=== PATIENT | female | born 1975 | race Caucasian/White ===

== ENCOUNTER → 2020-08-02 | Outpatient (CLI) | payer OTHER ==
--- NOTE | 2020-08-06 10:19 | MM ---
Reason for exam: screening (asymptomatic). Last mammogram was performed 1 year and 9 months ago. History: Took hormonal contraceptives for 15 years. Physical Findings: A clinical breast exam by your physician is recommended on an annual basis and results should be correlated with mammographic findings. MG 3D Screening Mammo W/Cad Bilateral CC and MLO view(s) were taken. Prior study comparison: November 15, 2018, mammogram, performed at [facility]. The breast tissue is heterogeneously dense. This may lower the sensitivity of mammography. Benign appearing calcifications in the left breast. No significant changes when compared with prior studies. ASSESSMENT: Benign, BI-RAD 2 RECOMMENDATION: Routine screening mammogram of both breasts in 1 year.
== END | disposition home or self-care (01) ==
LOC: RADMAMWWP 09:52
PROVIDERS: ATTEND Family Medicine
DX: Z12.31 Encounter for screening mammogram for malignant neoplasm of breast (principal)
CPT/HCPCS: 77063; 77067

== ENCOUNTER 2022-09-02 08:19 | Inpatient (IN) | payer OTHER ==
[2022-09-02] MEDS ORDERED: SODIUM CHLORIDE 0.9% 1,000 ML IV STA (09:32)
[2022-09-02] MEDS ORDERED: ONDANSETRON 4 MG/2 ML VIAL IVP STA ×2 (09:32→13:14)
[2022-09-02] MEDS ORDERED: HYDROmorphone 0.5 MG/0.5 ML SYRINGE IVP STA ×2 (09:33→13:14)
--- NOTE | 2022-09-02 09:34 | ED ---
General Adult HPI - General Chief complaint: Abdominal Pain Stated complaint: Abd pain Time Seen by Provider: 09/02/22 09:26 Source: patient, RN notes reviewed, old records reviewed Mode of arrival: ambulatory Limitations: no limitations - History of Present Illness Initial comments: 47-year-old female presenting for evaluation of abdominal pain and vomiting. Patient states she's had intermittent abdominal pain in the epigastrium for the past several days but this morning the pain significantly worsened and she had 5 episodes of vomiting. No lower abdominal pain. No fever. No prior abdominal surgical history. - Related Data Home Medications Medication Instructions Recorded Confirmed Atorvastatin [Lipitor] 10 mg PO DAILY 09/02/22 09/02/22 Daysee 1 tab PO DAILY 09/02/22 09/02/22 FLUoxetine HCL [PROzac] 20 mg PO DAILY 09/02/22 09/02/22 Famotidine [Pepcid] 20 mg PO DAILY 09/02/22 09/02/22 Allergies Allergy/AdvReac Type Severity Reaction Status Date / Time No Known Allergies Allergy Verified 09/02/22 11:07 Review of Systems ROS Statement: Those systems with pertinent positive or pertinent negative responses have been documented in the HPI. ROS Other: All systems not noted in ROS Statement are negative. Past Medical History Past Medical History: Hyperlipidemia History of Any Multi-Drug Resistant Organisms: None Reported Past Surgical History: No Surgical Hx Reported Past Psychological History: No Psychological Hx Reported Smoking Status: Never smoker Past Alcohol Use History: Occasional Past Drug Use History: Marijuana General Exam Limitations: no limitations General appearance: alert, in no apparent distress Head exam: Present: atraumatic, normocephalic Eye exam: Present: normal appearance, PERRL ENT exam: Present: normal exam Neck exam: Present: normal inspection. Absent: tenderness, meningismus Respiratory exam: Present: normal lung sounds bilaterally. Absent: respiratory distress, wheezes Cardiovascular Exam: Present: regular rate, normal rhythm GI/Abdominal exam: Present: soft, tenderness (Epigastrium and right upper quadrant). Absent: distended Extremities exam: Present: normal inspection, normal capillary refill. Absent: pedal edema Neurological exam: Present: alert, oriented X3, CN II-XII intact. Absent: motor sensory deficit Psychiatric exam: Present: normal affect, normal mood Skin exam: Present: warm, dry, intact Course Vital Signs 09/02/22 08:29 Temperature 98.2 F Pulse Rate 76 Respiratory 22 Rate Blood Pressure 147/94 O2 Sat by Pulse 99 Oximetry Medical Decision Making - Medical Decision Making Was pt. sent in by a medical professional or institution (SUKHJINDER Escalante, COMMUNICATIONS MANAGER, urgent care, hospital, or intermediate...) When possible be specific @ -[No] Did you speak to anyone other than the patient for history (EMS, parent, family, police, friend...)? What history was obtained from this source @ -[No] Did you review nursing and triage notes (agree or disagree)? Why? @ -[I reviewed and agree with nursing and triage notes] Were old charts reviewed (outside hosp., previous admission, EMS record, old EKG, old radiological studies, urgent care reports/EKG's, intermediate records)? Report findings @ -[No old charts were reviewed] Differential Diagnosis (chest pain, altered mental status, abdominal pain women, abdominal pain men, vaginal bleeding, weakness, fever, dyspnea, syncope, headache, dizziness, GI bleed, back pain, seizure, CVA, palpatations, mental health, musculoskeletal)? @ -Differential Abdominal Pain Women: Appendicitis, Cholecystitis, diverticulosis, ischemic bowel, pancreatitis, hepatitis, UTI, gastroenteritis, AAA, incarcerated hernia, bowel obstruction, constipation, inflammatory bowel, hepatitis, peptic ulcer disease, splenic infarction, perforated viscus, vulvitis, ovarian torsion, PID, kidney stone, placenta abruption, this is not meant to be an all-inclusive list EKG interpreted by me (3pts min.). @ -[As above] X-rays interpreted by me (1pt min.). @ -KUB: Mildly dilated small bowel without true peritoneal free air CT interpreted by me (1pt min.). @ -[None done] U/S interpreted by me (1pt. min.). @ -[Negative for acute cholecystitis What testing was considered but not performed or refused? (CT, X-rays, U/S, labs)? Why? @ -[None] What meds were considered but not given or refused? Why? @ -[None] Did you discuss the management of the patient with other professionals (professionals i.e. SUKHJINDER Escalante, COMMUNICATIONS MANAGER, lab, RT, psych nurse, social services designee, milk of lime slaker, teacher, enforcement officer, immigration case worker)? Give summary @ -[Dr. Hooks Was smoking cessation discussed for >3mins.? @ -[No] Was critical care preformed (if so, how long)? @ -[No] Were there social determinants of health that impacted care today? How? (Homelessness, low income, unemployed, alcoholism, drug addiction, transportation, low edu. Level, literacy, decrease access to med. care, alf, rehab)? @ -[No] Was there de-escalation of care discussed even if they declined (Discuss DNR or withdrawal of care, Hospice)? DNR status @ -[No] What co-morbidities impacted this encounter? (DM, HTN, Smoking, COPD, CAD, Cancer, CVA, ARF, Chemo, Hep., AIDS, mental health diagnosis, sleep apnea, morbid obesity)? @ -Hyperlipidemia Was patient admitted / discharged? Hospital course, mention meds given and route, prescriptions, significant lab abnormalities, going to OR and other pertinent info. @ 39-year-old female with epigastric abdominal pain and vomiting patient has tenderness in the epigastrium and right upper quadrant. Laboratory testing is unremarkable cleaning CBC, CMP, troponin, lipase. Patient receives ultrasound of the gallbladder which is negative for acute cholecystitis, x-ray which shows mildly distended small bowel. CT shows concern for small bowel obstruction. Patient admitted to general surgery. Undiagnosed new problem with uncertain prognosis? @ -[No] Drug Therapy requiring intensive monitoring for toxicity (Heparin, Nitro, Insulin, Cardizem)? @ -[No] Were any procedures done? @ -[No] Diagnosis/symptom? @ SBO Acute, or Chronic, or Acute on Chronic? @ Acute Uncomplicated (without systemic symptoms) or Complicated (systemic symptoms)? @ -Complicated Side effects of treatment? @ -[No] Exacerbation, Progression, or Severe Exacerbation? @ -[No] Poses a threat to life or bodily function? How? (Chest pain, [place], [place], pneumonia, PE, COPD, DKA, ARF, appy, cholecystitis, CVA, Diverticulitis, Homicidal, Suicidal, threat to staff... and all critical care pts) @ -Moderate risk - Lab Data Result diagrams: 09/02/22 09:20 09/02/22 09:34 Lab Results 09/02/22 09/02/22 09/02/22 Range/Units 09:20 09:20 09:34 WBC 12.7 H (3.8-10.6) k/uL RBC 5.33 (3.80-5.40) m/uL Hgb 15.9 (11.4-16.0) gm/dL Hct 48.4 H (34.0-46.0) % MCV 90.8 (80.0-100.0) fL MCH 29.8 (25.0-35.0) pg MCHC 32.8 (31.0-37.0) g/dL RDW 13.5 (11.5-15.5) % Plt Count 265 (150-450) k/uL MPV 8.0 Neutrophils % 85 % Lymphocytes % 10 % Monocytes % 3 % Eosinophils % 1 % Basophils % 0 % Neutrophils # 10.9 H (1.3-7.7) k/uL Lymphocytes # 1.3 (1.0-4.8) k/uL Monocytes # 0.4 (0-1.0) k/uL Eosinophils # 0.1 (0-0.7) k/uL Basophils # 0.0 (0-0.2) k/uL PT 9.7 (9.0-12.0) sec INR 0.9 (<1.2) APTT 22.5 (22.0-30.0) sec Sodium (137-145) mmol/L Potassium (3.5-5.1) mmol/L Chloride (98-107) mmol/L Carbon Dioxide (22-30) mmol/L Anion Gap mmol/L BUN (7-17) mg/dL Creatinine (0.52-1.04) mg/dL Est GFR (CKD-EPI)AfAm (>60 ml/min/1.73 sqM) Est GFR (CKD-EPI)NonAf (>60 ml/min/1.73 sqM) Glucose (74-99) mg/dL Plasma Lactic Acid [place] (0.7-2.0) mmol/L Calcium (8.4-10.2) mg/dL Total Bilirubin (0.2-1.3) mg/dL AST (14-36) U/L ALT (4-34) U/L Alkaline Phosphatase (38-126) U/L Troponin I <0.012 (0.000-0.034) ng/mL Total Protein (6.3-8.2) g/dL Albumin (3.5-5.0) g/dL Amylase (30-110) U/L Lipase (23-300) U/L Urine Color Urine Appearance (Clear) Urine pH (5.0-8.0) Ur Specific [place] (1.001-1.035) Urine Protein (Negative) Urine Glucose (UA) (Negative) Urine Ketones (Negative) Urine Blood (Negative) Urine Nitrite (Negative) Urine Bilirubin (Negative) Urine Urobilinogen (<2.0) mg/dL Ur Leukocyte Esterase (Negative) Urine WBC (0-5) /hpf Ur Squamous Epith Cells (0-4) /hpf Amorphous Sediment (None) /hpf Urine Mucus (None) /hpf 09/02/22 09/02/22 09/02/22 Range/Units 09:34 09:34 11:25 WBC (3.8-10.6) k/uL RBC (3.80-5.40) m/uL Hgb (11.4-16.0) gm/dL Hct (34.0-46.0) % MCV (80.0-100.0) fL MCH (25.0-35.0) pg MCHC (31.0-37.0) g/dL RDW (11.5-15.5) % Plt Count (150-450) k/uL MPV Neutrophils % % Lymphocytes % % Monocytes % % Eosinophils % % Basophils % % Neutrophils # (1.3-7.7) k/uL Lymphocytes # (1.0-4.8) k/uL Monocytes # (0-1.0) k/uL Eosinophils # (0-0.7) k/uL Basophils # (0-0.2) k/uL PT (9.0-12.0) sec INR (<1.2) APTT (22.0-30.0) sec Sodium 138 (137-145) mmol/L Potassium 4.3 (3.5-5.1) mmol/L Chloride 103 (98-107) mmol/L Carbon Dioxide 25 (22-30) mmol/L Anion Gap 10 mmol/L BUN 17 (7-17) mg/dL Creatinine 0.61 (0.52-1.04) mg/dL Est GFR (CKD-EPI)AfAm >90 (>60 ml/min/1.73 sqM) Est GFR (CKD-EPI)NonAf >90 (>60 ml/min/1.73 sqM) Glucose 132 H (74-99) mg/dL Plasma Lactic Acid Frederick 1.7 (0.7-2.0) mmol/L Calcium 9.6 (8.4-10.2) mg/dL Total Bilirubin 1.1 (0.2-1.3) mg/dL AST 26 (14-36) U/L ALT 22 (4-34) U/L Alkaline Phosphatase 74 (38-126) U/L Troponin I (0.000-0.034) ng/mL Total Protein 7.2 (6.3-8.2) g/dL Albumin 4.3 (3.5-5.0) g/dL Amylase 81 (30-110) U/L Lipase 156 (23-300) U/L Urine Color Yellow Urine Appearance Cloudy H (Clear) Urine pH 5.5 (5.0-8.0) Ur Specific [place] 1.024 (1.001-1.035) Urine Protein Trace H (Negative) Urine Glucose (UA) Negative (Negative) Urine Ketones 2+ H (Negative) Urine Blood Negative (Negative) Urine Nitrite Negative (Negative) Urine Bilirubin Negative (Negative) Urine Urobilinogen <2.0 (<2.0) mg/dL Ur Leukocyte Esterase Negative (Negative) Urine WBC 4 (0-5) /hpf Ur Squamous Epith Cells 10 H (0-4) /hpf Amorphous Sediment Rare H (None) /hpf Urine Mucus Many H (None) /hpf Disposition Clinical Impression: SBO (small bowel obstruction) Disposition: ADMITTED IP TO THIS [facility] Condition: Stable Instructions (If sedation given, give patient instructions): Abdominal Pain (ED) Is patient prescribed a controlled substance at d/c from ED?: No Referrals: Luigi Casas DO [Primary Care Provider] - 1-2 days Time of Disposition: 14:46
[2022-09-02 09:48] LABS: Basophils % (A) 0 %; Eosinophils # (A) 0.1 k/uL (0-0.7); Eosinophils % (A) 1 %; HCT 48.4 % (34.0-46.0); HGB 15.9 gm/dL (11.4-16.0); Lymphocytes # (A) 1.3 k/uL (1.0-4.8); Lymphocytes % (A) 10 %; MCH 29.8 pg (25.0-35.0); MCHC 32.8 g/dL (31.0-37.0); MCV 90.8 fL (80.0-100.0); Monocytes # (A) 0.4 k/uL (0-1.0); Monocytes % (A) 3 %; Neutrophils # (A) 10.9 k/uL (1.3-7.7); Neutrophils % (A) 85 %; Platelet Count 265 k/uL (150-450); RBC 5.33 m/uL (3.80-5.40); RDW 13.5 % (11.5-15.5); WBC 12.7 k/uL (3.8-10.6)
[2022-09-02 09:58] LABS: ALT 22 U/L (4-34); AST 26 U/L (14-36); African American GFR (CKD) >90 (>60 ml/min/1.73 sqM); Albumin 4.3 g/dL (3.5-5.0); Alkaline Phosphatase 74 U/L (38-126); Amylase 81 U/L (30-110); Anion Gap 10 mmol/L; Blood Urea Nitrogen 17 mg/dL (7-17); Calcium 9.6 mg/dL (8.4-10.2); Carbon Dioxide 25 mmol/L (22-30); Chloride 103 mmol/L (98-107); Glucose 132 mg/dL (74-99); Lipase 156 U/L (23-300); Non-African American GFR(CKD) >90 (>60 ml/min/1.73 sqM); Potassium 4.3 mmol/L (3.5-5.1); Sodium 138 mmol/L (137-145); Total Bilirubin 1.1 mg/dL (0.2-1.3); Total Protein 7.2 g/dL (6.3-8.2)
[2022-09-02 10:08] LABS: INR 0.9 (<1.2); Partial Thromboplastin Time 22.5 sec (22.0-30.0); Prothrombin Time 9.7 sec (9.0-12.0)
--- NOTE | 2022-09-02 11:05 | US ---
EXAMINATION TYPE: US gallbladder DATE OF EXAM: 09/02/2022 COMPARISON: None CLINICAL INDICATION: Female, 47 years old with history of abdominal pain; RUQ pain. TECHNIQUE: Multiple sonographic images of the right upper quadrant are obtained. FINDINGS: EXAM MEASUREMENTS: Liver Length: 14.9 cm Gallbladder Wall: 0.3 cm CBD: 5.3 mm Right Kidney: 10.5 x 5.4 x 5.9 cm Pancreas: Obscured by bowel gas. Only a small portion of the pancreatic head and neck is seen and sh ows no gross abnormality. Liver: left lobe cyst measures 1.0 x 1.0 x 0.8 cm. Gallbladder: Borderline distended. No wall thickening, shadowing stones, or surrounding fluid. Evidence for sonographic Whitfield's sign: No CBD: Upper limits of normal. Right Kidney: No hydronephrosis or masses seen IMPRESSION: 1. Borderline hydropic gallbladder probably due to fasting state. The bile duct measures at the upper limits of normal at 5.3 mm. If concern for early biliary obstruction, correlate with alkaline phosph atase and bilirubin levels. 2. No gallstones or ancillary findings of acute cholecystitis.
[2022-09-02 11:50] LABS: Amorphous Sediment,Urine Rare /hpf; Appearance,Urine Cloudy (Clear); Bilirubin,Urine Negative (Negative); Blood,Urine Negative (Negative); Color,Urine Yellow; Glucose,Urine (UA) Negative (Negative); Ketones,Urine 2+ (Negative); Leukocyte Esterase,Urine Negative (Negative); Mucus,Urine Many /hpf; Nitrite,Urine Negative (Negative); PH, Urine 5.5 (5.0-8.0); Protein,Urine Trace (Negative); Specific Gravity,Urine 1.024 (1.001-1.035); Squamous Epithelial Cell,Urine 10 /hpf (0-4); Urobilinogen,Urine <2.0 mg/dL (<2.0); WBC,Urine 4 /hpf (0-5)
--- NOTE | 2022-09-02 12:44 | XR ---
EXAMINATION TYPE: XR KUB DATE OF EXAM: 09/02/2022 Comparison: None Clinical History: 47-year-old female vomiting Findings: Lung bases are clear. No evidence of free intraperitoneal air. Prominent small bowel loops distended up to 2.9 cm with air-fluid levels. However, scattered colonic air is present. Mild stool in the right side of the abdomen. No suspicious calcifications seen. Impression: Borderline dilated small bowel up to 2.9 cm with multiple air-fluid levels. Findings could reflect en teritis, diffuse ileus, or early small bowel obstruction. Further clinical correlation recommended. Q uery any history of prior surgeries.
[2022-09-02] MEDS ORDERED: SODIUM CHLORIDE 0.9% 500 ML 500 ML IV ONE (13:14)
--- NOTE | 2022-09-02 14:34 | CT ---
EXAMINATION TYPE: CT abdomen pelvis w con DATE OF EXAM: 09/02/2022 COMPARISON: 05/14/2010 HISTORY: epigastric pain CT DLP: 1043.2 mGycm CONTRAST: CT scan of the abdomen and pelvis is performed without Oral Contrast and with IV Contrast, patient in jected with 100 mL of Isovue 300. FINDINGS: LUNG BASES-: No visible nodule. No infiltrate. LIVER/GB: No calcified gallstones. No space occupying hepatic lesion. Biliary tree is of normal ca liber. PANCREAS: No inflammation. No distinct mass. SPLEEN: No splenic enlargement. No lesion seen. ADRENALS: No nodule. No thickening. KIDNEYS/BLADDER: No hydronephrosis. No nephrolithiasis. No distinct solid renal mass. Renal cysti c changes noted. Urinary bladder grossly unremarkable. BOWEL: Normal appendix. There is dilated small bowel extending into the right lower quadrant where th ere is transition zone seen. Dilated loops of bowel measure up to 3 cm in greatest dimension with equ alization noted distally. Early complete versus partial distal small bowel obstruction is not exclude d. There is a small amount of interloop fluid with mesenteric edema. Small amount of ascites adjacent to the spleen and within the pelvis. GENITAL ORGANS: No gross abnormality. LYMPH NODES: No greater than 1cm abdominal or pelvic lymph nodes are appreciated. AORTA: No significant abnormality. OSSEOUS STRUCTURES: No significant abnormality is seen. OTHER: No significant additional abnormality is seen. IMPRESSION: 1. Early complete versus partial distal small bowel obstruction is not excluded. Right lower quadrant transition zone suspected.
[2022-09-02] MEDS ORDERED: NALOXONE 0.4 MG/ML 1 ML VIAL IV PRN (14:43)
[2022-09-02] MEDS ORDERED: ONDANSETRON 4 MG/2 ML VIAL IVP PRN (14:44)
[2022-09-02] MEDS ORDERED: HYDROmorphone 0.5 MG/0.5 ML SYRINGE IVP PRN (14:44)
[2022-09-02] MEDS ORDERED: HYDROmorphone 1 MG/ML 1 ML SYRINGE IVP PRN (14:44)
[2022-09-02] MEDS: SODIUM CHLORIDE 0.9% 1,000 ML IV SCH ×2 (15:25→22:19)
[2022-09-02] MEDS: PANTOPRAZOLE 40 MG/10 ML VIAL IV SCH (15:25)
[2022-09-02] MEDS ORDERED: IOPAMIDOL CONTRAST (ORAL USE) VIAL PO PRN (16:26)
[2022-09-02] MEDS ORDERED: ONDANSETRON 4 MG/2 ML VIAL IM STA (18:13)
--- NOTE | 2022-09-02 19:10 | CT ---
EXAMINATION TYPE: CT abdomen pelvis wo con CT DLP: 657.4 mGycm, Automated exposure control for dose reduction was used. DATE OF EXAM: 09/02/2022 6:57 PM COMPARISON: CT abdomen pelvis most recent from same day earlier. CLINICAL INDICATION:Female, 47 years old with history of Bowel obstruction; SBO. pt only drank 1 1/4 of 2 drinks. pt had scan with IV contrast earlier today TECHNIQUE: Axial CT of the abdomen and pelvis. Sagittal and coronal reformats were created on a [employer] workstation. Contrast used: None Oral contrast used: with Oral Contrast FINDINGS: LOWER CHEST: Unremarkable ABDOMEN LIVER: Unremarkable GALLBLADDER AND BILE DUCTS: Unremarkable. PANCREAS: Unremarkable. SPLEEN: Unremarkable. ADRENAL GLANDS: Unremarkable. KIDNEYS AND URETERS: No evidence of hydronephrosis or renal calculus. Excreted IV contrast seen withi n the collecting systems bilaterally. PELVIS BLADDER: Excreted IV contrast the bladder lumen. The bladder is unremarkable. REPRODUCTIVE: Unremarkable. ABDOMEN & PELVIS STOMACH AND BOWEL: Scattered colonic diverticula with oral contrast extending to the jejunum. Stackin g loops of small bowel are seen within the right lower quadrant measuring up to 2.3 cm. Findings rela tively unchanged from same day. There is relative nondistention of the terminal ileum with small nora l feces in the right abdomen suggestive of location of obstruction. Small hiatal hernia. PERITONEUM/RETROPERITONEUM: No evidence of pneumoperitoneum or free fluid. VASCULATURE: No evidence of aortic aneurysm. MUSCULOSKELETAL: No acute osseous abnormalities LYMPH NODES: No gross evidence for lymphadenopathy. SOFT TISSUE/ABDOMINAL WALL: Fat-containing umbilical hernia. IMPRESSION: Findings are essentially unchanged with early complete versus partial bowel obstruction. Multiple sta cking loops of bowel are seen throughout the abdomen. Oral contrast extends only to the jejunum. Seri al abdominal radiographs would be of benefit. Transition point likely in the right abdomen given nond istention of the terminal ileum and some small bowel feces in the distal small bowel in the right abd omen.
[2022-09-03] MEDS: PANTOPRAZOLE 40 MG/10 ML VIAL IV SCH (08:39)
--- NOTE | 2022-09-03 14:15 | P.GSHP ---
History of Present Illness H&P Date: 09/03/22 CHIEF COMPLAINT: Abdominal pain HISTORY OF PRESENT ILLNESS: This is a 47-year-old female who presented with abdominal pain and vomiting. Patient reports abdominal pain started on Thursday, 4 days ago. And then continued to progress through Thursday and into Thursday. And on Thursday she started vomiting. Initially it was food products and the bile and then brownish in color. She reports having a small bowel movement on Thursday. But then stopped having flatus and bowel movements. She reports the pain is on the left side of the umbilicus. She is now feeling better. She is having flatus. No nausea or vomiting for over 24 hours. She denies any prior surgical history on her abdomen. Denies any cardiac history. Computed tomography scan had shown an early complete versus partial small bowel obstruction not excluded. Right lower quadrant transition zone expected. She did have a follow-up computed tomography scan with oral contrast showing early complete versus partial small bowel obstruction with transition point in the right abdomen. She is having flatus. Her pain has improved greatly and she's been started on clear liquid diet. PAST MEDICAL HISTORY: Hyperlipidemia PAST SURGICAL HISTORY: See below MEDICATIONS: See below ALLERGIES: See below SOCIAL HISTORY: No illicit drug use. REVIEW OF SYSTEMS: CONSTITUTIONAL: Denies fever or chills. HEENT: Denies blurred vision, vision changes, or eye pain. Denies hemoptysis CARDIOVASCULAR: Denies chest pain or pressure. RESPIRATORY: No shortness of breath. GASTROINTESTINAL: See HPI for pertinent findings HEMATOLOGIC: Denies bleeding disorders. GENITOURINARY: Denies any blood in urine or increased urinary frequency. SKIN: Denies pruitis. Denies rash. PHYSICAL EXAM: VITAL SIGNS: Reviewed GENERAL: Well-developed in no acute distress. HEENT: No sclera icterus. Extraocular movements grossly intact. Moist buccal mucosa. Head is atraumatic, normocephalic. No nasal drainage. ABDOMEN: Soft. Nondistended. Minimal tenderness to palpation of the left side abdomen lateral to the umbilicus NEUROLOGIC: Alert and oriented. Cranial nerves II through XII grossly intact. LABORATORY DATA: WBC is 12.7 Hgb 15.9 platelets 265 INR 0.9 Sodium 138 potassium is 4.3 creatinine 0.61 Troponin negative Lipase 156 LFTs normal Urinalysis negative for infection IMAGING: Computed tomography scan findings as stated above Gallbladder ultrasound ultrasound borderline hydropic gallbladder partly due to fasting state. The bile duct measures at the upper limits of normal at 5.3 mm. If concern for early biliary obstruction correlate with alk phos and bilirubin levels. ASSESSMENT: 1. Abdominal pain with nausea and vomiting with computed tomography scan findings of partial small bowel obstruction PLAN: -Patient's pain has resolved and that she is having flatus. We'll start clear liquid diet -Continue to monitor -Encourage patient to ambulate -Continue IV fluids -Consult medicine for medical management -GI prophylaxis Protonix and DVT prophylaxis subcu heparin Physician Credit Report Checker note has been reviewed by physician. Signing provider agrees with the documented findings, assessment, and plan of care. Past Medical History Past Medical History: Hyperlipidemia Additional Past Medical History / Comment(s): kidney stone, chronic fatigue syndrome History of Any Multi-Drug Resistant Organisms: None Reported Past Surgical History: No Surgical Hx Reported Additional Past Surgical History / Comment(s): Cystoscopy, rhinoplasty Past Anesthesia/Blood Transfusion Reactions: Postoperative Nausea & Vomiting (PONV) Past Psychological History: Anxiety, Depression Smoking Status: Never smoker Past Alcohol Use History: Occasional Past Drug Use History: Marijuana Medications and Allergies Home Medications Medication Instructions Recorded Confirmed Type Atorvastatin [Lipitor] 10 mg PO DAILY 09/02/22 09/02/22 History Daysee 1 tab PO DAILY 09/02/22 09/02/22 History FLUoxetine HCL [PROzac] 20 mg PO DAILY 09/02/22 09/02/22 History Famotidine [Pepcid] 20 mg PO DAILY 09/02/22 09/02/22 History Allergies Allergy/AdvReac Type Severity Reaction Status Date / Time No Known Allergies Allergy Verified 09/02/22 11:07 Surgical - Exam Vital Signs Temp Pulse Resp BP Pulse Ox 98.2 F 76 22 147/94 99 09/02/22 08:29 09/02/22 08:29 09/02/22 08:29 09/02/22 08:29 09/02/22 08:29 Results - Labs 09/02/22 09:20 09/02/22 09:34 Abnormal Lab Results - Last 24 Hours (Table) 09/02/22 Range/Units 11:25 Urine Appearance Cloudy H (Clear) Urine Protein Trace H (Negative) Urine Ketones 2+ H (Negative) Ur Squamous Epith Cells 10 H (0-4) /hpf Amorphous Sediment Rare H (None) /hpf Urine Mucus Many H (None) /hpf
[2022-09-03] MEDS: SODIUM CHLORIDE 0.9% 1,000 ML IV SCH ×2 (19:43→20:16)
[2022-09-03] MEDS: HEPARIN SODIUM,PORCINE/PF 5,000 UNIT/0.5 ML SYRINGE SQ SCH (20:16)
[2022-09-04 08:43] VITALS: RESP 18
[2022-09-04] MEDS: HEPARIN SODIUM,PORCINE/PF 5,000 UNIT/0.5 ML SYRINGE SQ SCH (08:50)
[2022-09-04] MEDS: PANTOPRAZOLE 40 MG/10 ML VIAL IV SCH (08:50)
[2022-09-04] MEDS ORDERED: FLUoxetine HCL 20 MG CAP PO SCH (09:45)
[2022-09-04 10:56] LABS: WBC 6.2 k/uL (3.8-10.6)
[2022-09-04 10:57] LABS: HCT 39.3 % (34.0-46.0); HGB 13.1 gm/dL (11.4-16.0); MCH 30.4 pg (25.0-35.0); MCHC 33.2 g/dL (31.0-37.0); MCV 91.4 fL (80.0-100.0); Platelet Count 245 k/uL (150-450); RDW 13.5 % (11.5-15.5)
[2022-09-04 11:06] LABS: African American GFR (CKD) >90 (>60 ml/min/1.73 sqM); Anion Gap 3 mmol/L; Blood Urea Nitrogen 5 mg/dL (7-17); Calcium 8.2 mg/dL (8.4-10.2); Carbon Dioxide 29 mmol/L (22-30); Chloride 106 mmol/L (98-107); Glucose 101 mg/dL (74-99); Non-African American GFR(CKD) >90 (>60 ml/min/1.73 sqM); Sodium 138 mmol/L (137-145)
--- NOTE | 2022-09-04 13:24 | P.CONS ---
History of Present Illness - Reason for Consult Consult date: 09/04/22 - Chief Complaint Abdominal pain - History of Present Illness * 47-year-old lady with past medical history significant for depression, dyslipidemia presented to the emergency department with complaints of abdominal pain * The time of presentation she was noted to have nausea, vomiting, abdominal pa in epigastric in origin going on for several days with recurrent episode of vomiting restricted her to come to emergency * Workup initiated in ER including CBC which showed white cell count of 12.7 ser um chemistry obtained which was essentially within normal limits, troponin serum amylase and lipase within normal limits * Urinalysis was negative for infectious etiology * She had extensive workup done including CT abdomen and pelvis which showed small bowel early complete versus partial obstruction * Ultrasound gallbladder showed hydrophilic gallbladder, no wall thickening noted * Liver profile within normal limits * Medicine team consulted for medical management patient remains stable diet advanced as tolerated Review of Systems REVIEW OF SYSTEMS: CONSTITUTIONAL: Nausea vomiting abdominal pain improved HEENT: No recent visual problems or hearing problems. Denied any sore throat. CARDIOVASCULAR: No chest pain, orthopnea, PND, no palpitations, no syncope. PULMONARY: No shortness of breath, no cough, no hemoptysis. GASTROINTESTINAL: Nausea vomiting abdominal pain NEUROLOGICAL: No headaches, no weakness, no numbness. HEMATOLOGICAL: Denies any bleeding or petechiae. GENITOURINARY: Denies any burning micturition, frequency, or urgency. MUSCULOSKELETAL/RHEUMATOLOGICAL: Denies any joint pain, swelling, or any muscle pain. ENDOCRINE: Denies any polyuria or polydipsia. Past Medical History Past Medical History: Hyperlipidemia Additional Past Medical History / Comment(s): kidney stone, chronic fatigue syndrome History of Any Multi-Drug Resistant Organisms: None Reported Past Surgical History: No Surgical Hx Reported Additional Past Surgical History / Comment(s): Cystoscopy, rhinoplasty Past Anesthesia/Blood Transfusion Reactions: Postoperative Nausea & Vomiting (PONV) Past Psychological History: Anxiety, Depression Smoking Status: Never smoker Past Alcohol Use History: Occasional Past Drug Use History: Marijuana Medications and Allergies Home Medications Medication Instructions Recorded Confirmed Type Atorvastatin [Lipitor] 10 mg PO DAILY 09/02/22 09/02/22 History Daysee 1 tab PO DAILY 09/02/22 09/02/22 History FLUoxetine HCL [PROzac] 20 mg PO DAILY 09/02/22 09/02/22 History Famotidine [Pepcid] 20 mg PO DAILY 09/02/22 09/02/22 History Allergies Allergy/AdvReac Type Severity Reaction Status Date / Time No Known Allergies Allergy Verified 09/02/22 11:07 Physical Exam Vitals: Vital Signs Temp Pulse Pulse Resp BP Pulse Ox 09/04/22 08:00 77 18 09/04/22 07:18 98.7 F 77 18 126/81 95 09/04/22 01:49 98.2 F 82 17 111/74 98 09/03/22 20:00 98.2 F 78 15 116/73 96 09/03/22 15:35 98.2 F 80 16 125/82 98 Intake and Output 09/03/22 09/04/22 09/04/22 22:59 06:59 14:59 Intake Total 320 Balance 320 Intake: Oral 320 Other: # Voids 2 2 PHYSICAL EXAMINATION: GENERAL: The patient is alert and oriented x3, not in any acute distress. Well developed, well nourished. HEENT: Pupils are round and equally reacting to light. EOMI. No scleral icterus. No conjunctival pallor. Normocephalic, atraumatic. No pharyngeal erythema. No thyromegaly. CARDIOVASCULAR: S1 and S2 present. No murmurs, rubs, or gallops. PULMONARY: Chest is clear to auscultation, no wheezing or crackles. ABDOMEN: Soft, nontender, nondistended, normoactive bowel sounds. No palpable organomegaly. MUSCULOSKELETAL: No joint swelling or deformity. EXTREMITIES: No cyanosis, clubbing, or pedal edema. NEUROLOGICAL: Gross neurological examination did not reveal any focal deficits. SKIN: No rashes. Results CBC & Chem 7: 09/04/22 10:33 09/04/22 10:33 Labs: Abnormal Lab Results - Last 24 Hours (Table) 09/04/22 Range/Units 10:33 BUN 5 L (7-17) mg/dL Glucose 101 H (74-99) mg/dL Calcium 8.2 L (8.4-10.2) mg/dL Assessment and Plan Assessment: Assessment and plan * Abdominal pain with partial small bowel obstruction * History of depression * Dyslipidemia * Continue patient on IV fluids, optimize electrolytes * Diet advanced as tolerated by general surgery * Patient appears stable from medical standpoint * Subcu heparin for DVT prophylaxis * Continue pain control, Zofran for nausea * Continue patient on Prozac * Lipitor can be resumed at the time of discharge
[2022-09-04 13:58] VITALS: BP 128/82; PULSE 82; TEMP 98.5
== END 2022-09-04 14:01 | disposition home or self-care (01) | DRG 389 ==
LOC: EC 08:19 → 4SSUR 14:44
PROVIDERS: ADMIT Surgery; ATTEND Surgery
DX: K56.600 Partial intestinal obstruction, unspecified as to cause (principal); K82.1 Hydrops of gallbladder; E78.5 Hyperlipidemia, unspecified; F32.A Depression, unspecified; F41.9 Anxiety disorder, unspecified; G93.32 Myalgic encephalomyelitis/chronic fatigue syndrome; Z79.3 Long term (current) use of hormonal contraceptives; Z79.899 Other long term (current) drug therapy; Z87.442 Personal history of urinary calculi
CPT/HCPCS: 36415; 74018; 74176; 74177; 76705; 80048; 80053; 81001; 82150; 83605; 83690; 84484; 85025; 85027; 85610; 85730; 96361; 96374; 96375; 96376; 99285

== ENCOUNTER → 2022-10-02 | Outpatient (CLI) | payer OTHER ==
--- NOTE | 2022-10-02 09:50 | NM ---
EXAMINATION TYPE: NM hepatobiliary w CCK DATE OF EXAM: 10/02/2022 COMPARISON: No direct comparisons. CLINICAL INDICATION: Female, 47 years old with history of K81.1; TECHNIQUE: After the intravenous administration of 3.8 mCi Tc 99m Mebrofenin hepatobiliary scintigrap hy is performed. Immediate images post injection. FINDINGS: There is satisfactory initial accumulation of tracer by the liver. The gallbladder is visualized rosina n 1 minute. The small bowel activity is noted within 18 minutes. At 8 minutes CCK was administered, patient was injected with 1.6 mcg of Kinevac, and gallbladder ejection fraction is calculated at 29 % . Therefore there is no scintigraphic evidence of cystic or common bile duct obstruction to suggest a cute cholecystitis. IMPRESSION: 1. No evidence for cystic duct or common bile duct obstruction. No evidence for acute cholecystitis. Next and 2. Gallbladder dyskinesia with an ejection fraction of 29%.
== END | disposition home or self-care (01) ==
LOC: RADNMMAIN 07:05
PROVIDERS: ATTEND Surgery
DX: K81.1 Chronic cholecystitis (principal); K82.8 Other specified diseases of gallbladder
CPT/HCPCS: 78227; A9537; J2805

== ENCOUNTER → 2022-11-04 | Outpatient (CLI) | payer OTHER | END | disposition home or self-care (01) | LOC: LABWHC1 12:18 | PROVIDERS: ATTEND Surgery Plastic and Reconstructive Surgery | DX: I42.2 Other hypertrophic cardiomyopathy (principal); I45.19 Other right bundle-branch block; I23.2 Ventricular septal defect as current complication following acute myocardial infarction; R00.0 Tachycardia, unspecified; R94.31 Abnormal electrocardiogram [ECG] [EKG] | CPT/HCPCS: 36415; 93005 ==